=== PATIENT | female | born 1990 | race Caucasian/White ===

== ENCOUNTER 2025-06-30 08:46 | Outpatient (CLI) | payer SELFPAY | END 2025-06-30 23:59 | disposition home or self-care (01) | LOC: LAB 08:48 | PROVIDERS: Visit Provider Nurse Practitioner Obstetrics & Gynecology | DX: Z34.90 Encounter for supervision of normal pregnancy, unspecified, unspecified trimester (principal); N92.6 Irregular menstruation, unspecified; Z3A.00 Weeks of gestation of pregnancy not specified | CPT/HCPCS: 36415; 84144; 84702 ==